=== PATIENT | male | born 1990 | race African-American/Black ===

== ENCOUNTER 2019-09-20 17:35 | Emergency (ER) | payer OTHER ==
[2019-09-20 17:45] VITALS: TEMP 98.3; BMI 19.9
--- NOTE | 2019-09-20 18:46 | PDOC ---
History of Present Illness - General Chief Complaint: Nausea/Vomiting Stated Complaint: VOMITTING/NAUSEA/APPETITE LOSS History Source: Patient Exam Limitations: No Limitations - History of Present Illness Initial Comments: 09/20/19 18:35 Patient is a 29 year old male with h/o asthma, "fluid around heart" c/o nausea, vomting, feeling weak, fatigue, generalized chest pain, abd pain, headache, facial pain. Patient states that the symptoms started 4 days ago with loss of appetite. States has not been eating for 4 days, due to nausea, vomited started today x several episodes now clear fluid. States heart feels like it is pounding, dizziness- light headed and his body shaking. Denies fever, dysuria, diarrhea. Patient is a poor historian due to present state of illness. States "I feel bad, I can talk". PMHX: as above PSOCHX: (+) cig 1 pdd, (+) etoh occ, (-) drug ALL : NKDA GENERAL/CONSTITUTIONAL: [No fever or chills. No weakness. No weight change.] HEAD, EYES, EARS, NOSE AND THROAT: [No change in vision. No ear pain or discharge. No sore throat.] CARDIOVASCULAR: [No chest pain or shortness of breath.] RESPIRATORY: [No cough, wheezing, or hemoptysis.] GASTROINTESTINAL: [(+) nausea, vomiting, (-) diarrhea or constipation. No rectal bleeding.] GENITOURINARY: [No dysuria, frequency, or change in urination.] MUSCULOSKELETAL: [No joint or muscle swelling or pain. No neck or back pain.] SKIN AND BREASTS: [No rash or easy bruising.] NEUROLOGIC: [(+) headache, (-) vertigo, loss of consciousness, or loss of sensation.] PSYCHIATRIC: [No depression or anxiety.] ENDOCRINE: [No increased thirst. No abnormal weight change.] HEMATOLOGIC/LYMPHATIC: [No anemia, easy bleeding, or history of blood clots.] ALLERGIC/IMMUNOLOGIC: [No hives or skin allergy. No latex allergy.] GENERAL: [The patient is awake, alert, and fully oriented, in acute distress, shaking legs.] HEAD: [Normal with no signs of trauma.] EYES: [Pupils equal, round and reactive to light, extraocular movements intact, sclera anicteric, conjunctiva clear.] ENT: [Ears normal, nares patent, oropharynx clear without exudates. Moist mucous membranes.] NECK: [Normal range of motion, supple without lymphadenopathy, JVD, or masses.] LUNGS: [Breath sounds equal, clear to auscultation bilaterally. No wheezes, and no crackles.] HEART: [Regular rate and rhythm, normal S1 and S2 without murmur, rub, generalized chest tenderness.] ABDOMEN: [Soft, generalized tenderness, normoactive bowel sounds. No guarding, no rebound. No masses.] EXTREMITIES: [Normal range of motion, no edema. No clubbing or cyanosis. No cords, erythema, or tenderness.] NEUROLOGICAL: [Cranial nerves II through XII grossly intact. Normal speech, normal gait.] PSYCH: [Normal mood, normal affect.] SKIN: [Warm, Dry, normal turgor, no rashes or lesions noted.] Past History - Past Medical History Allergies/Adverse Reactions: Allergies Allergy/AdvReac Type Severity Reaction Status Date / Time shellfish derived Allergy Verified 09/20/19 17:45 COPD: No - Psycho Social/Smoking Cessation Hx Smoking History: Never smoked *Physical Exam - Vital Signs Last Vital Signs Temp Pulse Resp BP Pulse Ox 98.3 F 92 H 18 134/67 97 09/20/19 17:42 09/20/19 17:42 09/20/19 17:42 09/20/19 17:42 09/20/19 17:42 ED Treatment Course - LABORATORY CBC & Chemistry Diagram: 09/20/19 19:30 09/20/19 19:30 Medical Decision Making - Medical Decision Making 09/20/19 18:35 Patient is a 29 year old male with h/o asthma, "fluid around heart" c/o nausea, vomting, feeling weak, fatigue, generalized chest pain, abd pain, headache, facial pain. Patient states that the symptoms started 4 days ago with loss of appetite. States has not been eating for 4 days, due to nausea, vomited started today x several episodes now clear fluid. States heart feels like it is pounding, dizziness- light headed and his body shaking. Denies fever, dysuria, diarrhea. Patient is a poor historian due to present state of illness. States "I feel bad, I can talk". Symptoms consistent with viral illness, possible dehydration Labs IV fluids, Toradol, Zofran EKG Reassess EKG: Sinus rhythm 95, normal axis, LVH, early repolarization 09/20/19 21:23 Labs reviewed noted patient to be moderate dehydrated. Patient has received IV fluids x2 L. Patient states his symptoms have resolved for now tolerating p.o. he feels better and would like to go home. Selected Entries 09/20/19 21:34 Pulse Rate [ 81 Left Brachial] Respiratory 16 Rate Blood Pressure 124/77 [Left Arm] I discussed the physical exam findings, ancillary test results and final diagnoses with the patient. I answered all of the patient's questions. The patient was satisfied with the care received and felt comfortable with the discharge plan and treatment plan. The Patient agrees to follow up with the primary care physician within 24-72 hours. Discharge - Discharge Information Problems reviewed: Yes Clinical Impression/Diagnosis: Dehydration Nausea and vomiting Qualifiers: Vomiting type: unspecified Vomiting Intractability: non-intractable Qualified Code(s): R11.2 - Nausea with vomiting, unspecified Condition: Stable Disposition: HOME - Follow up/Referral - Patient Discharge Instructions Patient Printed Discharge Instructions: DI for Dehydration -- Adult, DI for Vomiting -- Adult Additional Instructions: Your Discharge Instructions: You must call primary care physician within 24 hours to arrange follow-up. Return to the Emergency Department with any new, persistent or worsening symptoms, for fever, chills, SOB, dizziness or any other concerning changes that may occur. - Post Discharge Activity
[2019-09-20] MEDS ORDERED: SODIUM CHLORIDE 1,000 ML IV STA (18:47)
[2019-09-20] MEDS ORDERED: KETOROLAC TROMETHAMINE 30 MG/1 ML VIAL IVPUSH ONE (18:47)
[2019-09-20] MEDS ORDERED: ONDANSETRON 4 MG/2 ML VIAL IVPUSH ONE (18:47)
[2019-09-20] MEDS ORDERED: SODIUM CHLORIDE 0.9% 500 ML INFUS.BAG IV ONE (18:47)
[2019-09-20] MEDS ORDERED: KETOROLAC TROMETHAMINE 30 MG/1 ML VIAL ONE (19:14)
[2019-09-20] MEDS ORDERED: ONDANSETRON 4 MG/2 ML VIAL ONE (19:14)
[2019-09-20 19:51] LABS: BASO % 0.9 % (0-2.0); EOS % 0.4 % (0-4.5); HEMATOCRIT 44.2 % (35.4-49); HEMOGLOBIN 14.4 GM/dL (11.7-16.9); LYMPH % 25.2 % (8-40); MCH 30.2 pg (25.7-33.7); MCHC 32.6 g/dl (32.0-35.9); MEAN CELL VOLUME 92.6 fl (80-96); MEAN PLT VOLUME 8.9 fl (7.5-11.1); MONO % 7.7 % (3.8-10.2); NEUT % 65.8 % (42.8-82.8); PLATELET COUNT 246 K/MM3 (134-434); RBC 4.77 M/mm3 (4.00-5.60); RDW 13.8 % (11.9-15.9); WHITE BLOOD COUNT 7.3 K/mm3 (4.0-10.0)
[2019-09-20 19:53] LABS: EPI CELLS 1.4 /HPF (0-5/HPF); HYALINE CASTS 7 /lpf (0-8); PH,URINE 5.5 (5.0-8.0); URINE APPEARANCE CLEAR; URINE BACTERIA 1.2 /hpf (NEGATIVE); URINE BILIRUBIN NEGATIVE (NEGATIVE); URINE COLOR YELLOW; URINE GLUCOSE (UA) NEGATIVE (NEGATIVE); URINE KETONE 4+ (NEGATIVE); URINE LEUK ESTERASE NEGATIVE (NEGATIVE); URINE NITRITE NEGATIVE (NEGATIVE); URINE PROTEIN 1+ (NEGATIVE); URINE RBC 1 /hpf (0-4); URINE WBC 3 /hpf (0-5)
[2019-09-20 20:19] LABS: ALBUMIN 4.9 g/dl (3.4-5.0); BILIRUBIN,TOTAL 0.8 mg/dL (0.2-1); BLOOD UREA NITROGEN 15.9 mg/dL (7-18); CALCIUM 9.2 mg/dL (8.5-10.1); POTASSIUM 3.9 mmol/L (3.5-5.1); TOT PROT 7.8 g/dl (6.4-8.2)
[2019-09-20 21:35] VITALS: BP 124/77; PULSE 81
--- NOTE | 2019-09-21 10:07 | EKG ---
Test Reason : Blood Pressure : / mmHG Vent. Rate : 085 BPM Atrial Rate : 085 BPM P-R Int : 164 ms QRS Dur : 084 ms QT Int : 372 ms P-R-T Axes : 074 077 065 degrees QTc Int : 442 ms NORMAL SINUS RHYTHM MODERATE VOLTAGE CRITERIA FOR LVH, MAY BE NORMAL VARIANT EARLY REPOLARIZATION BORDERLINE ECG NO PREVIOUS ECGS AVAILABLE Confirmed by SAIGE CASTELLANOS MD ([id number]) on 09/21/2019 10:07:15 AM Referred By: Confirmed By:SAIGE CASTELLANOS MD
== END 2019-09-20 21:35 | disposition home or self-care (01) ==
LOC: JER 17:35
DX: E86.0 Dehydration (principal); Z91.013 Allergy to seafood; F17.210 Nicotine dependence, cigarettes, uncomplicated; Z87.09 Personal history of other diseases of the respiratory system
CPT/HCPCS: 36415; 80053; 81003; 85025; 87804; 93005; 93010; 99282-25; J7030

== ENCOUNTER 2019-11-11 13:57 | Emergency (ER) | payer OTHER ==
--- NOTE | 2019-11-11 14:03 | PDOC ---
Rapid Medical Evaluation Time Seen by Provider: 11/11/19 14:03 Medical Evaluation: Allergies Allergy/AdvReac Type Severity Reaction Status Date / Time shellfish derived Allergy Verified 09/20/19 17:45 11/11/19 14:03 have performed a brief in-person evaluation of this patient. The patient presents with a chief complaint of:L ear pain Pertinent physical exam findings:stable, defer exam to ED provider I have ordered the following:nothing The patient will proceed to the ED for further evaluation. Discharge Disposition - Diagnosis Left ear pain - Discharge Dispostion Disposition: HOME Condition at time of disposition: Stable - Prescriptions Prescriptions: Amox-Tr/K Cl [Augmentin - 875Mg Tablet] 1 tab PO BID #14 tablet - Referrals Referrals: Ty Mandujano MD [Staff Physician] - - Patient Instructions Printed Discharge Instructions: DI for Ear Pain-Adult Additional Instructions: You were evaluated for your ear pain today. You most likely have an ear canal infection. I was unable to see the eardrum at this time. Please take the Augmentin twice a day for 1 week. This will treat both the ear canal and possible eardrum infection. You may take Motrin 600 mg every 6 hours as needed for pain. Please follow-up with the ears nose and throat specialist. A referral has been provided to you. Return to the ER for any dizziness, lightheadedness, hearing loss or if you have any changes in your symptoms. - Post Discharge Activity Work/School Note: Back to Work
[2019-11-11 14:05] VITALS: BP 114/68; PULSE 102; TEMP 98.2; BMI 23.3
--- NOTE | 2019-11-11 14:33 | PDOC ---
History of Present Illness - General Chief Complaint: Ear Problem Stated Complaint: L/EAR PROBLEM Time Seen by Provider: 11/11/19 14:03 History Source: Patient Exam Limitations: No Limitations Past History - Travel Traveled outside of the country in the last 30 days: No Close contact w/someone who was outside of country & ill: No - Past Medical History Allergies/Adverse Reactions: Allergies Allergy/AdvReac Type Severity Reaction Status Date / Time shellfish derived Allergy Verified 11/11/19 14:05 Home Medications: Ambulatory Orders Amox-Tr/K Cl [Augmentin - 875Mg Tablet] 1 tab PO BID #14 tablet 11/11/19 COPD: No - Psycho Social/Smoking Cessation Hx Smoking History: Never smoked Information on smoking cessation initiated: No Hx Alcohol Use: No Drug/Substance Use Hx: No Review of Systems - Review of Systems Able to Perform ROS?: Yes Comments:: 11/11/19 14:27 CONSTITUTIONAL: Absent: fever, chills, diaphoresis, generalized weakness, malaise, loss of appetite HEENT: Present: L ear pain Absent: rhinorrhea, nasal congestion, throat pain, throat swelling, difficulty swallowing, mouth swelling, ear pain, eye pain, visual Changes RESPIRATORY: Absent: cough, shortness of breath, dyspnea with exertion, orthopnea, wheezing, stridor, hemoptysis MUSCULOSKELETAL: Absent: myalgia, arthralgia, joint swelling SKIN: Absent: rash, itching, pallor NEUROLOGIC: Absent: headache, focal weakness or paresthesias, dizziness, unsteady gait, seizure, mental status changes, bladder or bowel incontinence PSYCHIATRIC: Absent: anxiety, depression, suicidal or homicidal ideation, hallucinations. Is the patient limited Panamanian proficient: No *Physical Exam - Vital Signs Last Vital Signs Temp Pulse Resp BP Pulse Ox 98.2 F 102 H 18 114/68 99 11/11/19 14:03 11/11/19 14:03 11/11/19 14:03 11/11/19 14:03 11/11/19 14:03 - Physical Exam 11/11/19 14:29 GENERAL: The patient is awake, alert, and fully oriented, in no acute distress. HEAD: Normal with no signs of trauma. EYES: Pupils equal, round and reactive to light, extraocular movements intact, sclera anicteric, conjunctiva clear. HEENT: No nasal congestion or rhinorrhea. No sinus Tenderness. Mucous membranes are moist. No tonsillar erythema, exudate or edema. Uvula is midline. Unable to visualize the TMs bilaterally. Left ear canal appears swollen. No otorrhea. EXTREMITIES: Normal range of motion, no edema. NEUROLOGICAL: Normal speech, normal gait. PSYCH: Normal mood, normal affect. SKIN: Warm, Dry, normal turgor, no rashes or lesions noted. Medical Decision Making - Medical Decision Making 11/11/19 14:30 You the patient is a 29-year-old male with past medical history of a "ear surgery "presents to the ER today for left ear pain. He states that the pain started last night. He states that it hurts to touch, denies hearing changes. He states that he feels popping in the ear. Denies dizziness, and lightheadedness. A/P: Left ear pain On exam the TMs are unable to be visualized bilaterally. Swelling to the left ear canal noted. Probable otitis externa versus otitis media. We will treat with Augmentin Discharge home with ENT follow-up. I discussed the physical exam findings, ancillary test results and final diagnoses with the patient. I answered all of the patient's questions. The patient was satisfied with the care received and felt comfortable with the discharge plan and treatment plan. The Patient agrees to follow up with the primary care physician/specialist within 24-72 hours. Return precautions were given. Discharge - Discharge Information Problems reviewed: Yes Clinical Impression/Diagnosis: Left ear pain Condition: Stable Disposition: HOME - Admission No - Follow up/Referral Referrals: Ty Mandujano MD [Staff Physician] - - Patient Discharge Instructions Patient Printed Discharge Instructions: DI for Ear Pain-Adult Additional Instructions: You were evaluated for your ear pain today. You most likely have an ear canal infection. I was unable to see the eardrum at this time. Please take the Augmentin twice a day for 1 week. This will treat both the ear canal and possible eardrum infection. You may take Motrin 600 mg every 6 hours as needed for pain. Please follow-up with the ears nose and throat specialist. A referral has been provided to you. Return to the ER for any dizziness, lightheadedness, hearing loss or if you have any changes in your symptoms. - Post Discharge Activity Work/Back to School Note: Back to Work
== END 2019-11-11 14:38 | disposition home or self-care (01) ==
LOC: JERFT 13:57
DX: H92.02 Otalgia, left ear (principal)
CPT/HCPCS: 99282-25

== ENCOUNTER 2021-04-20 19:52 | Emergency (ER) | payer OTHER ==
[2021-04-20 20:03] VITALS: BP 112/53; PULSE 68; TEMP 98.6; BMI 20.9
[2021-04-20] MEDS ORDERED: SODIUM CHLORIDE 1,000 ML IV STA (21:06)
[2021-04-20] MEDS ORDERED: ONDANSETRON 4 MG/2 ML VIAL IVPUSH ONE (21:06)
[2021-04-20] MEDS ORDERED: ONDANSETRON 4 MG/2 ML VIAL ONE (21:25)
[2021-04-20 21:52] LABS: BASO % 0.6 % (0-2.0); EOS % 0.3 % (0-4.5); HEMATOCRIT 40.5 % (35.4-49); HEMOGLOBIN 13.6 GM/dL (11.7-16.9); LYMPH % 4.2 % (8-40); MCH 30.5 pg (25.7-33.7); MCHC 33.5 g/dl (32.0-35.9); MONO % 16.7 % (3.8-10.2); NEUT % 78.2 % (42.8-82.8); PLATELET COUNT 203 10^3/uL (134-434); RBC 4.45 M/mm3 (4.00-5.60); RDW 13.8 % (11.9-15.9); WHITE BLOOD COUNT 7.1 K/mm3 (4.0-10.0)
[2021-04-20 22:19] LABS: CALCIUM 9.1 mg/dL (8.5-10.1)
[2021-04-20 22:20] LABS: ALBUMIN 4.5 g/dl (3.4-5.0); BLOOD UREA NITROGEN 14.2 mg/dL (7-18)
[2021-04-20 22:24] LABS: BILIRUBIN,TOTAL 0.7 mg/dL (0.2-1)
[2021-04-20 22:25] LABS: ANISOCYTOSIS 0; MACROCYTOSIS 0; PLATELET ESTIMATE NORMAL; TOT PROT 7.5 g/dl (6.4-8.2)
[2021-04-20] MEDS ORDERED: ACETAMINOPHEN 325 MG TABLET (FP) ONE (22:55)
[2021-04-20] MEDS ORDERED: ACETAMINOPHEN 500 MG TABLET (FP) PO ONE (23:00)
== END 2021-04-21 00:04 | disposition home or self-care (01) ==
LOC: JER 19:52
PROC: 3E033GC Introduction of Other Therapeutic Substance into Peripheral Vein, Percutaneous Approach (ICD-10-PCS; principal; 2021-04-20)
PROC: 3E0337Z Introduction of Electrolytic and Water Balance Substance into Peripheral Vein, Percutaneous Approach (ICD-10-PCS; 2021-04-20)
DX: U07.1 COVID-19 (principal)
CPT/HCPCS: 36415; 80053; 83690; 85025; 99284-25; C9803; U0003; U0005